=== PATIENT | male | born 1935 | race Caucasian/White ===

== ENCOUNTER 2018-12-10 08:17 | Emergency (ER) | payer MEDICARE, BC ==
[~2018-12-10] VITALS: Ht 175.3 cm; Wt 83.9 kg
--- OUTSIDE RECORDS SUMMARY | 2018-12-10 08:19 | XMS REPORT ---
Author Author [facility] Address Unknown Phone Unavailable Care Team Providers Care Scrap Picker Name Role Phone Unavailable Unavailable Problems This patient has no known problems. Allergies, Adverse Reactions, Alerts This patient has no known allergies or adverse reactions. Medications This patient has no known medications.
--- OUTSIDE RECORDS SUMMARY | 2018-12-10 08:19 | XMS REPORT | Clinical Summary ---
Author Author [facility] Organization [facility] Address Unknown Phone Unavailable Care Team Providers Care Auto Body Repair Technician Name Role Phone Annemarie Guzman DO PCP Allergies No Known Allergies Medications End Date Status Medication Sig Dispensed Refills Start Date Active tamsulosin (FLOMAX) 0.4 Take 0.4 mg 3 mg capsule,extended by mouth 2 6 release 24hr (two) times a day. Active aspirin (ECOTRIN) 81 MG Take 81 mg by 0 enteric coated tablet mouth daily. Active polyethylene glycol I scoop every 0 (GLYCOLAX) 17 gram/dose morning 8 powder Active rosuvastatin (CRESTOR) 20 TAKE ONE 90 tablet 3 MG tablet TABLET BY 8 MOUTH ONCE DAILY Active miscellaneous medical Medium 3 each 3 supply misc compression 9 support hose 01/06/2018 Discontinued (Reorder) hydroCHLOROthiazide TAKE ONE 90 tablet 0 (HYDRODIURIL) 12.5 MG TABLET 8 tablet (12.5MG) BY MOUTH ONCE DAILY 04/16/2018 Discontinued (Reorder) hydroCHLOROthiazide TAKE 1 TABLET 90 tablet 0 (HYDRODIURIL) 12.5 MG BY MOUTH ONCE 8 tablet DAILY 07/28/2018 Discontinued (Reorder) hydroCHLOROthiazide TAKE 1 TABLET 90 tablet 0 (HYDRODIURIL) 12.5 MG BY MOUTH ONCE 9 tablet DAILY 08/06/2018 Discontinued (Med List Cleanup) hydroCHLOROthiazide TAKE 1 TABLET 90 tablet 0 (HYDRODIURIL) 12.5 MG BY MOUTH ONCE 9 tablet DAILY Active Problems Problem Noted Date Hyperlipidemia LDL goal <70 12/09/2017 Benign prostatic hyperplasia 10/07/2017 Hypoglycemia 10/07/2017 Pure hypercholesterolemia 10/07/2017 Actinic keratosis 03/19/2017 Advanced directives, counseling/discussion 03/19/2017 Right-sided extracranial carotid artery stenosis 03/19/2017 Dyspepsia 03/19/2017 Gynecomastia 03/19/2017 Heart murmur 03/19/2017 Hypogonadism in male 03/19/2017 Stenosis of left vertebral artery 03/19/2017 Coronary artery disease involving [place] coronary artery of [place] heart 03/12/2016 without angina pectoris Essential hypertension 03/12/2016 Left carotid artery occlusion 03/12/2016 Atherosclerosis of right carotid artery 03/12/2016 S/P CABG x 3 03/12/2016 Aortic valve disease 03/12/2016 Encounters Care Team Description Date Type Specialty Kisha Hidalgo, TERESA Med Refill 08/13/2018 Refill Cardiology Kisha Hidalgo RN 08/13/2018 Orders Only Cardiology Tanner Costello MD Hypertension, unspecified type; Prostate cancer screening; Vasovagal syncope 08/06/2018 Lab Lab Tanner Costello MD Hypertension, unspecified type (Primary Dx); Prostate cancer screening; Vasovagal syncope 08/06/2018 Office Visit Cardiology Tanner Costello MD Med Refill 07/28/2018 Refill Cardiology Deidra Reilly MA Return Call 07/21/2018 Telephone Cardiology Tanner Costello MD Med Refill 04/16/2018 Refill Cardiology Tanner Costello MD Med Refill 01/06/2018 Refill Cardiology Tanner Payan MD Hyperlipidemia LDL goal <70 (Primary Dx); Right-sided extracranial carotid artery stenosis; Left carotid artery occlusion; Essential hypertension 12/09/2017 Office Visit Neurology after 12/09/2017 Family History Medical History Relation Name Comments Arthritis Father Hypertension Mother Relation Name Status Comments Father Mother Social History Date Tobacco Use Types Packs/Day Years Used Never Smoker Smokeless Tobacco: Never Used Drinks/Week oz/Week Comments Alcohol Use No Sex Assigned at Date Recorded Male 08/04/2018 2:07 PM CDT Industry Job Start Date Occupation Not on file Not on file Not on file Travel End Travel History Travel Start No recent travel history available. Last Filed Vital Signs Reading Time Taken Comments Vital Sign 118/69 08/06/2018 8:57 AM CDT Blood Pressure 52 08/06/2018 8:57 AM CDT Pulse - - Temperature - - Respiratory Rate - - Oxygen Saturation - - Inhaled Oxygen Concentration 87.1 kg (192 lb) 08/06/2018 8:57 AM CDT Weight 175.3 cm (5' 9") 08/06/2018 8:57 AM CDT Height 28.35 08/06/2018 8:57 AM CDT Body Mass Index Plan of Treatment Care Team Description Date Type Specialty Tanner Costello MD [address] [facility] [address] [place] [id number] 02/09/2019 Office Visit Cardiology Health Maintenance Due Date Last Done Comments SHINGLES VACCINES (#1) 1986 65+ PNEUMOCOCCAL VACCINE 2001 (1 of 2 - PCV13) INFLUENZA VACCINE 10/30/2018 Procedures Comments Procedure Name Priority Date/Time Associated Diagnosis HEMOGLOBIN A1C Routine 08/06/2018 Hypertension, unspecified 11:10 AM CDT type Prostate cancer screening Vasovagal syncope ESTIMATED GFR Routine 08/06/2018 11:10 AM CDT LIPID PANEL Routine 08/06/2018 Hypertension, unspecified 11:10 AM CDT type Prostate cancer screening Vasovagal syncope HC COMPLETE BLD COUNT Routine 08/06/2018 Hypertension, unspecified W/AUTO DIFF 11:10 AM CDT type Prostate cancer screening Vasovagal syncope COMPREHENSIVE METABOLIC Routine 08/06/2018 Hypertension, unspecified PANEL 11:10 AM CDT type Prostate cancer screening Vasovagal syncope PROSTATE SPECIFIC ANTIGEN Routine 08/06/2018 Hypertension, unspecified 11:10 AM CDT type Prostate cancer screening Vasovagal syncope ECG 12-LEAD Routine 08/06/2018 Hypertension, unspecified 9:03 AM CDT type PV TRANSCRANIAL DOPPLER Routine 12/09/2017 Right-sided extracranial INTRACRANIAL ARTERIES 4:00 PM CDT carotid artery stenosis COMPLETE US CAROTID DUPLEX Routine 12/09/2017 Right-sided extracranial BILATERAL 4:00 PM CDT carotid artery stenosis after 12/09/2017 Results * Estimated GFR (08/06/2018 11:10 AM CDT) Pathologist [facility] [place] Estimated GFR 58 (A) mL/min/1.73 m2 [place] Comment: [facility] rpretation G1 >=90 Normal or high G2 60-89Mildly decreased [id number] Mildly to moderately decreased [id number] Moderately to severely decreased G4 15-29Severely decreased G5 <15Kidney failure The eGFR was calculated using the Chronic Kidney Disease Epidemiology Collaboration (CKD-EPI) equation. Interpretation is based on recommendations of the National Kidney Foundation-Kidney Disease Outcomes Quality Initiative (NKF-KDOQI) published in 2014. Specimen Plasma specimen Performing Organization Address City/State/Zipcode Phone Number [facility] DEPARTMENT OF [address] [place] [address] PATHOLOGY AND GENOMIC MEDICINE [address] * CBC with platelet and differential (08/06/2018 11:10 AM CDT) Pathologist [facility] [place] WBC 7.52 4.50 - 11.00 k/uL [facility] RBC 3.50 (L) 4.40 - 6.00 m/uL [facility] HGB 10.9 (L) 14.0 - 18.0 g/dL [facility] HCT 32.9 (L) 41.0 - 51.0 % [facility] MCV 94.0 82.0 - 100.0 fL [facility] MCH 31.1 27.0 - 34.0 pg [facility] MCHC 33.1 31.0 - 37.0 g/dL [facility] RDW - SD 44.6 37.0 - 55.0 fL [facility] MPV 10.3 8.8 - 13.2 fL [facility] Platelet count 198 150 - 400 k/uL [facility] Nucleated RBC 0.00 /100 WBC [facility] Neutrophils 74.0 (H) 39.0 - 69.0 % [facility] Lymphocytes 18.2 (L) 25.0 - 45.0 % [facility] Monocytes 5.7 0.0 - 10.0 % [facility] Eosinophils 0.8 0.0 - 5.0 % [facility] Basophils 0.5 0.0 - 1.0 % [facility] Immature 0.8Comment: "Immature 0.0 - 1.0 % [place] granulocytes granulocytes" (promyelocytes, CONFUCIANIST myelocytes, metamyelocytes) HOSPITAL Specimen Blood Performing Organization Address City/State/Zipcode Phone Number [facility] [place] [address] PATHOLOGY AND [facility] MEDICINE [address] * Prostate specific antigen (08/06/2018 11:10 AM CDT) Pathologist [facility] [place] PSA 1.5 0.0 - 4.0 ng/mL [place] Comment: CONFUCIANIST The THU 8000 PSA immunoassay [facility] was used. Results obtained with different assay methods or kits should not be used interchangeably and may be different. Specimen Plasma specimen Performing Organization Address City/[facility]/Zipcode Phone Number [facility] [place] [address] PATHOLOGY [facility] MEDICINE [address] * Hemoglobin A1c (08/06/2018 11:10 AM CDT) Pathologist [facility] [place] Hemoglobin A1C 6.3 (H) 4.0 - 5.6 % [place] Comment: [facility] HbA1c cutoffs for diagnosing HOSPITAL diabetes: 4.0% - 5.6%=normal 5.7% - 6.4%=increased risk for diabetes (prediabetes) >=6.5%=diabetes Goals for glycemic control (ADA 2016) < 7.0%Target for non adults with diabetes. More or less stringent targets may be appropriate for individual patients. <7.5% Target for Children and adolescents with type 1 diabetes. Specimen Blood Performing Organization Address City/State/Zipcode Phone Number [facility] DEPARTMENT OF [address] [place] [address] PATHOLOGY AND [facility] MEDICINE [address] * Lipid panel (08/06/2018 11:10 AM CDT) [facility] Cholesterol 130 <200 mg/dL [facility] Triglycerides 59 <150 mg/dL [facility] HDL cholesterol 54 >40 mg/dL [facility] LDL cholesterol 69Comment: Result obtained by <100 mg/dL [place] direct LDL measurement [facility] Comment: [facility] Total Cholesterol [facility] (mg/dL) <200 Desirable 200-239Borderline -high >=240High Triglycerides (mg/dL) <150 Normal 150-199Borderline -high 200-499High >=500Very high HDL Cholesterol (mg/dL) <40Low (male) <40Low (female) LDL Cholesterol (mg/dL) <100 Optimal 100-129Near or above optimal 130-159Borderline -high 160-189High >=190Very high Risk Catergories that modify LDL goals. Risk Catergories LDL goal (mg/dL) CHD and CHD risk equivalent<100 (10-year risk >20%) Multiple (2+) risk factors <130 (10-year risk=<20%) 0-1 risk factors <160 (<10-year risk) Defining levels of lipids in metabolic syndrome Triglycerides >=150 mg/dL HDL Cholesterol Men <40 mg/dL Women <40 mg/dL Non-HDL cholesterol is a second target for therapy in persons with high triglycerides (>=200 mg/dL) Specimen Plasma specimen Performing Organization Address City/State/Zipcode Phone Number [facility] DEPARTMENT OF [address] [place] [address] PATHOLOGY AND GENOMIC MEDICINE [address] * Comprehensive metabolic panel (08/06/2018 11:10 AM CDT) Sodium 143 135 - 148 mEq/L [facility] Potassium 4.4 3.5 - 5.0 mEq/L [facility] Chloride 106 98 - 112 mEq/L [facility] CO2 23 (L) 24 - 31 mEq/L [facility] Anion gap 14@ANIO 7 - 15 mEq/L [facility] BUN 16 8 - 23 mg/dL [facility] Creatinine 1.17 0.70 - 1.20 mg/dL [facility] Glucose 111 (H) 65 - 99 mg/dL [facility] Calcium 8.7 (L) 8.8 - 10.2 mg/dL [facility] Protein 6.4 6.3 - 8.3 g/dL [place] Comment: [facility] 4.6-7.0 g/dL 1 week 4.4-7.6 g/dL 7 months-1year 5.1-7.3 g/dL 1-2 years5.6-7 .5 g/dL >3 years6.0-8 .0 g/dL 18-150 6.3-8.3 g/dL Albumin 3.4 (L) 3.5 - 5.0 g/dL [facility] A/G ratio 1.1 0.7 - 3.8 [facility] Alkaline 78 40 - 129 U/L [facility] AST 29 10 - 50 U/L [facility] ALT 32 5 - 50 U/L [facility] Total bilirubin 0.4 0.0 - 1.2 mg/dL [facility] Specimen Plasma specimen Performing Organization Address City/[facility] Phone Number [facility] DEPARTMENT OF [address] [place] [address] PATHOLOGY AND GENOMIC MEDICINE [address] * ECG 12 lead (08/06/2018 9:03 AM CDT) Ventricular 52 [facility] rate Atrial rate 52 [facility] IL interval 186 [facility] QRSD interval 154 [facility] QT interval 468 [facility] QTC interval 435 [facility] P axis 1 78 [facility] QRS axis 1 30 [facility] T wave axis 68 [facility] EKG impression Sinus bradycardia-Right bundle [facility] MUSE branch block-Abnormal ECG-In automated comparison with ECG of 07-OCT-2017 10:23,-No significant change was found- Specimen Narrative Performed At Performing Organization Address City/[facility] Phone Number [facility] MUSE [address] [place] [address] * Pv transcranial Doppler intracranial arteries (12/09/2017 4:00 PM CDT) Specimen Narrative Performed At Clinical Indications/Diagnosis: Equipment: [facility]ck PMD 150 Vessel RIGHTLEFT Ophthalmic Artery Antegrade Retrograde Siphon Bruit noted Not Seen Anterior Cerebral Artery Normal Reversed Middle Cerebral Artery Normal- TIBI 5 Normal- TIBI 5 Posterior Cerebral ArteryNormal Normal Verterbral Artery Normal Not Seen Basilic Artery Normal Normal TCD MonitoringNegative Negative BHI: >0.69 (normal) NormalNormal Head Turning Findings: Rt siphon bruit seen, possible related to proximal stenosis Rt to Lt anterior cross filling flow seen with Lt [place] reversed flow left OA retrograde, low resistance flow present. Normal Rt vertibrobasilar flow seen. Lt VA is occluded Negative spontaneous emboli were detected. BHI: Right MCA=(68-535/3)x100/20=1.4 BHI: Left MCA=(66-53/53)x100/20=1.2 Physician Interpretation of TCD: 1) There is right to left anterior cross filling. 2) There is hyperdynamic flow in the right carotid siphon. 3) There is no stenosis in the right vertebral or basilar arteries. 3) No hemodynamically significant intracranial stenoses in the major branches of the [place]. 4) No spontaneous emboli were detected during monitoring. 5) The cerebrovascular reserve is normal on breath holding. Recommend ultrasound follow-up in 1-2 years or sooner if symptoms develop. * Us carotid duplex (12/09/2017 4:00 PM CDT) R CCA Mid 27.00 cm/s R CCA Mid 104.00 cm/s L CCA Mid 0.00 cm/s L CCA Mid 64.00 cm/s L ECA Prox 11.00 cm/s L ECA Prox 157 cm/s R ECA Prox 11.00 cm/s L ICA Prox 0 cm/s L ICA Prox 0 cm/s R ICA Prox 64 cm/s R ICA Prox 182 cm/s R ICA/CCA Ratio 1.8 R ICA Dist 50 cm/s R ICA Mid 52 cm/s L ICA Dist 0 cm/s L ICA DIST 0 cm/s R Vert Art 22.00 cm/s R ECA Prox 82.00 cm/s L ICA Mid 0 cm/s L ICA Mid 0 cm/s R ICA Dist 137 cm/s R ICA Mid 131 cm/s L Vert Art 0.00 cm/s L Vert Art 0 cm/s R Vert Art 81.00 cm/s Specimen Narrative Performed At Physician Interpretation of Carotid Doppler: 1) The left internal carotid artery is occluded. 2) There is moderate, calcified plaque in the right internal carotid artery with 50-69% stenosis. 3) There are no hemodynamically significant stenoses. 4) The left vertebral artery has absent flow.The right vertebral artery flows antegrade. Recommend ultrasound follow-up in 1-2 years or sooner if symptoms develop. 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
[2018-12-10 09:01] VITALS: BP 145/69
== END 2018-12-10 09:51 | disposition home or self-care (01) ==
LOC: ER 08:17
DX: N50.1 Vascular disorders of male genital organs (principal)
CPT/HCPCS: 99282